=== PATIENT | female | born 1975 | race Caucasian/White ===

== ENCOUNTER 2016-06-15 12:24 | Emergency (ER) | payer MEDICAID ==
[~2016-06-15] VITALS: Ht 162.6 cm; Wt 79.3 kg
[~2016-06-15 12:24] MED LIST: ADDE10 PO; ADDE30XR PO; BACL10TA PO; CLON0.2T PO; CLON1 PO; ENAL2.5T PO; ENAL20TA PO; GLYB1.253 PO; GLYB2.5T3 PO; PROZ20CA11 PO
[2016-06-15 12:30] VITALS: BP 125/93; PULSE 105; RESP 18; TEMP 99.4; O2SAT 98
[2016-06-15] MEDS ORDERED: GLYB2.5T3 PO (13:34)
[2016-06-15] MEDS ORDERED: ADDE10 PO (13:34)
[2016-06-15] MEDS ORDERED: ADDE30XR PO (13:34)
[2016-06-15] MEDS ORDERED: CLON0.1T PO (13:34)
[2016-06-15] MEDS ORDERED: ENAL20TA PO (13:34)
[2016-06-15] MEDS ORDERED: CLON1TAB PO (13:34)
[2016-06-15] MEDS ORDERED: SPIR25TA PO (13:34)
== END 2016-06-15 14:00 | disposition left against medical advice (07) ==
LOC: PHED 12:24
DX: Z53.21 Procedure and treatment not carried out due to patient leaving prior to being seen by health care provider (principal)
CPT/HCPCS: 99281